=== PATIENT | male | born 1945 | race Caucasian/White ===

== ENCOUNTER → 2018-12-27 09:01 | Outpatient (CLI) | payer MEDICARE, SELFPAY ==
[2018-12-27 09:27] LABS: Add Manual Diff / Slide Review NO; Basophils Absolute Auto 0 /uL (0-100); Basophils Percent Auto 0.7 % (0-2); Eosinophils Absolute Auto 100 /uL (0-450); Eosinophils Percent Auto 1.6 % (2-4); Hematocrit 43.6 % (41-53); Hemoglobin 15.2 g/dL (13.5-17.5); Lymphocytes Absolute Auto 700 /uL (1100-4500); Lymphocytes Percent Auto 16.5 % (25-40); Mean Corpuscular HGB Conc 34.8 % (30-36); Mean Corpuscular Hemoglobin 33.8 PG (26-34); Monocytes Absolute Auto 400 /uL (0-900); Monocytes Percent Auto 8.3 % (3-14); Neutrophils Absolute Auto 3100 /uL (1500-7000); Neutrophils Percent Auto 72.9 % (50-75); Platelet Count 237 X10^3/uL (150-400); Red Blood Cell Count 4.49 X10^6/uL (4.5-5.9); Red Cell Distribution Width 13.1 % (11.6-14.8); White Blood Cell Count 4.3 X10^3/uL (4.5-11.0)
[2018-12-27 10:01] LABS: Alanine Aminotransferase 48 IU/L (21-72); Albumin Globulin Ratio 1.4 (1.0-2.8); Alkaline Phosphatase 60 U/L (38-126); Aspartate Aminotransferase 36 IU/L (17-59); BUN Creatinine Ratio 25.6 (6-22); Bilirubin Total 0.8 mg/dL (0.2-1.3); Blood Urea Nitrogen 23 mg/dL (9-20); Calcium 9.4 mg/dL (8.4-10.2); Carbon Dioxide 23 mmol/L (22-32); Chloride 104 mmol/L (98-107); Cholesterol 211 mg/dL (140-199); Estimated Glomerular Filt Rate > 60.0 mL/min (>60); Globulin 2.8 g/dL (1.7-4.1); Glucose 106 mg/dL (80-110); HDL Cholesterol 61 mg/dL (40-60); HEMOLYSIS < 15 (0-50); LDL Cholesterol Calculated 109 mg/dL (<100); Potassium 4.6 mmol/L (3.4-5.1); Sodium 137 mmol/L (137-145); Total Protein 6.8 g/dL (6.3-8.2); Triglycerides 204 mg/dL (35-150)
[2018-12-27 10:31] LABS: Prostate Specific Antigen 1.35 ng/mL (0.10-4.00)
== END ==
PROVIDERS: Family Provider Urology; Visit Provider Student in an Organized Health Care Education/Training Program
DX: E78.00 Pure hypercholesterolemia, unspecified (principal); N40.0 Benign prostatic hyperplasia without lower urinary tract symptoms; Z12.5 Encounter for screening for malignant neoplasm of prostate
CPT/HCPCS: 36415; 80053; 80061; 84153; 85025

== ENCOUNTER → 2019-01-28 09:03 | Outpatient (CLI) | payer MEDICARE, SELFPAY ==
[2019-01-28 10:44] LABS: Add Manual Diff / Slide Review NO; Basophils Absolute Auto 100 /uL (0-100); Basophils Percent Auto 1.7 % (0-2); Eosinophils Absolute Auto 100 /uL (0-450); Eosinophils Percent Auto 2.1 % (2-4); Hematocrit 42.1 % (41-53); Hemoglobin 14.3 g/dL (13.5-17.5); Lymphocytes Absolute Auto 900 /uL (1100-4500); Lymphocytes Percent Auto 20.1 % (25-40); Mean Corpuscular HGB Conc 33.9 % (30-36); Mean Corpuscular Hemoglobin 33.2 PG (26-34); Mean Corpuscular Volume 98.1 fL (80-100); Monocytes Absolute Auto 300 /uL (0-900); Monocytes Percent Auto 7.1 % (3-14); Neutrophils Absolute Auto 3000 /uL (1500-7000); Platelet Count 273 X10^3/uL (150-400); White Blood Cell Count 4.4 X10^3/uL (4.5-11.0)
== END ==
PROVIDERS: PCP Student in an Organized Health Care Education/Training Program; Visit Provider Student in an Organized Health Care Education/Training Program
DX: D72.819 Decreased white blood cell count, unspecified (principal)
CPT/HCPCS: 36415; 85025

== ENCOUNTER → 2019-11-07 12:22 | Outpatient (CLI) | payer MEDICARE, SELFPAY ==
[2019-11-07 14:47] LABS: Prostate Specific Antigen Scrn 0.599 ng/mL (0.1-4.0)
[2019-11-08 05:10] LABS: Immunoglobulin G, Quantitative 997 mg/dL (603-1613); Immunoglobulin M, Quantitative 198 mg/dL (15-143)
[2019-11-13 22:10] LABS: 18 kD IgG Band Present (.); 23 kD IgG Band Present (.); 28 kD IgG Band Absent (.); 30 kD IgG Band Absent (.); 39 kD IgG Band Absent (.); 41 kD IgG Bands Present (.); 45 kD IgG Band Absent (.); 58 kD IgG Band Absent (.); 66 kD IgG Band Absent (.); IgG P93 AB Present (.); IgM P23 AB Absent (.); IgM P39 AB Present (.); IgM P41 AB Absent (.); Lyme IgG Line Blot Interpretat Negative (.); Lyme IgM Line Blot Interpretat Negative (.)
== END ==
PROVIDERS: PCP Student in an Organized Health Care Education/Training Program; Referring Provider Student in an Organized Health Care Education/Training Program; Visit Provider Student in an Organized Health Care Education/Training Program
DX: N40.0 Benign prostatic hyperplasia without lower urinary tract symptoms (principal); W57.XXXA Bitten or stung by nonvenomous insect and other nonvenomous arthropods, initial encounter
CPT/HCPCS: 36415; 82784; 86617; 86618; G0103

== ENCOUNTER → 2021-02-14 09:28 | Outpatient (CLI) | payer OTHER, SELFPAY ==
[2021-02-14 14:48] LABS: COVID19 -Nasal RAPID Negative (Negative)
== END ==
PROVIDERS: PCP Student in an Organized Health Care Education/Training Program; Referring Provider Nurse Practitioner Family; Visit Provider Nurse Practitioner Family
DX: Z20.822 Contact with and (suspected) exposure to COVID-19 (principal); Z01.812 Encounter for preprocedural laboratory examination
CPT/HCPCS: 87635

== ENCOUNTER 2021-02-16 08:17 | Day surgery (SDC) | payer OTHER, SELFPAY ==
--- NOTE | 2021-02-16 07:26 | PM.PREOP ---
Pre-operative Note COVID-19 COVID-19 status: Negative Interval Note History & Physical reviewed/Exam performed by Physician: Yes Changes to H&P: No
--- NOTE | 2021-02-16 07:27 | PM.OP.1 ---
Operative Date/Time/Diagnoses Date of procedure: 02/09/21 Time of procedure: 09:45 Procedure & Clinicians Procedure: Preoperative diagnoses: 1. Right significant cortical and sclerotic cataract 2. Astigmatism and presbyopia which is to be corrected with a multifocal toric intraocular lens implant. 3. Glaucoma suspect Postoperative diagnoses: 1. Cataract removal with phacoemulsification with Panoptix toric posterior chamber intraocular lens implant placed. Procedure: Phacoemulsification with posterior chamber toric intraocular lens implant. Surgeon: Belkis Britton MD Complications: None Specimen: None Implant: [id number]+16.5 [place] 178 Blood loss: None Anesthesia: Retrobulbar with monitored standby Description of procedure: Patient presents with a complaint of decreased vision due to cataract which is affecting activities of daily living. He is having difficulty with driving middle and near vision and wishes surgery to improve these. He will likes a Panoptix toric intra-ocular The patient wants surgery to improve vision and astigmatism. He understands the extra risk of surgery during the COVID-19 epidemic and wishes to proceed. Is tested for negative iris within 72 hours of the procedure. The patient was taken to the operating room and proparacaine drops placed. Indelible ink contreras were placed at the 90 and 180 degree meridian. The patient was placed on the operating room table and given IV sedation. A retrobulbar block insert consisting of 6 cc of 2% xylocaine without epinephrine mixed half and half with 0.5% Marcaine with 1 cc of hyaluronidase added is placed between the medial and lateral 1/3 of the inferior orbital rim. The eye is manually massaged for 30 sec, prepped using Betadine solution, and draped in the usual sterile fashion. Temporal approach was made, a 1 mm side-port incision was made 90? from the proposed corneal wound. Phenylephrine 1.5% mixed with 1% xylocaine 0.2 cc was placed into the anterior chamber. Endocoat followed by Romulo was then placed. A 2.6 mm clear incision with a 2.6 mm blade was placed at the 170 degree meridian. To enhance visibility capsular dye was placed under an air bubble in the air bubble was removed. The eye was very deep set with poor central red reflex. 360 degree capsulorrhexis style capsulotomy was then performed with a cystitome needle on a Healon aided by the capsular dye Hydrodelineation and hydrodissection were performed. The phacoemulsification unit is introduced, and sculpting used to groove the central lens. It is then removed in chopping mode. Epi nucleus is removed with epinuclear mode and irrigation aspiration was used to remove the peripheral cortex. The posterior capsule is polished. The intraocular lens is selected, inspected, power confirmed, and placed in the posterior chamber at the desired meridian of 178 degrees and carefully centered. The pupil was not constricted. The wound was stromally hydrated and tested for leaks, there was none and it was left sutureless. Vigamox 0.1 cc was placed into the anterior chamber. Kenalog 0.2 cc was placed in the superior subconjunctival space. A drop of antibiotic and was placed and the eye was patched and shielded. The patient was stable and returned to the recovery room in excellent condition. Dictated by: Belkis Britton MD Copy to: [facility] Same procedure as scheduled: Yes
[2021-02-16] MEDS: PROPARACAINE 0.5% OPHTH SOL 2 DROPS EYE-OP ×2 (09:18→09:54)
[2021-02-16 09:21] VITALS: BP 111/69; PULSE 49; RESP 16; TEMP 36.7; O2SAT 98; BMI 24.0
[2021-02-16] MEDS: CATARACT EYE COMPOUND (10 DROPS/SYRINGE) 3 DROPS EYE-OP (09:39)
[2021-02-16] MEDS: LIDOCAINE 2% 4 ML, BUPIVACAINE 0.5% (PF) 4 ML, HYALURONIDASE 150 UNIT INJ (10:03)
--- NOTE | 2021-02-16 10:15 | SUR.OPER ---
Supine on eye stretcher, head on extension cradle and foam donut then secured with tape. Arms tucked at sides with blanket. Pillow under knees.
[2021-02-16] MEDS: HYALURONATE SODIUM 30 MG-10 MG/ML SYRINGES 1 BOX INTRAOCULA (10:18)
[2021-02-16] MEDS: ERYTHROMYCIN OPHTH 1 GM OINT 1 APPLIC EYE-RIGHT (10:18)
[2021-02-16] MEDS: MOXIFLOXACIN INJ 4 MG/0.8 ML VIAL 0.5 MG EYE-OP (10:18)
[2021-02-16] MEDS: TRYPAN BLUE 0.5 ML SYRINGE INJ (10:18)
[2021-02-16] MEDS: BALANCED SALT IRRIG SOLN NO.2 500 ML, EPINEPHrine 1 MG IRR (10:19)
[2021-02-16] MEDS: TRIAMCINOLONE 50 MG/5 ML VIAL INJ (10:19)
[2021-02-16] MEDS: PHENYLEPHRINE/LIDOCAINE VIAL (OR) 0.2 ML EYE-OP (10:19)
[2021-02-16 10:56] VITALS: BP 117/78; PULSE 47; RESP 14; TEMP 36.4; O2SAT 98
== END 2021-02-16 11:11 | disposition home or self-care (01) ==
LOC: OR 08:18
PROVIDERS: PCP Student in an Organized Health Care Education/Training Program; Referring Provider Ophthalmology; Visit Provider Ophthalmology
PROC: (CPT 66984; principal; 2021-02-16 09:45)
DX: H25.811 Combined forms of age-related cataract, right eye (principal); H52.201 Unspecified astigmatism, right eye; H52.4 Presbyopia; H40.009 Preglaucoma, unspecified, unspecified eye
CPT/HCPCS: 66984; J0171; J2704; J3301; J3470; V2788

== ENCOUNTER → 2021-02-28 09:27 | Outpatient (CLI) | payer OTHER, SELFPAY ==
[2021-02-28 14:12] LABS: COVID19 -Nasal RAPID Negative (Negative)
== END ==
PROVIDERS: PCP Student in an Organized Health Care Education/Training Program; Referring Provider Physician Assistant; Visit Provider Physician Assistant
DX: Z20.822 Contact with and (suspected) exposure to COVID-19 (principal); Z01.812 Encounter for preprocedural laboratory examination
CPT/HCPCS: 87635

== ENCOUNTER 2021-03-02 06:29 | Day surgery (SDC) | payer OTHER, SELFPAY ==
--- NOTE | 2021-03-01 17:21 | PM.PREOP ---
Pre-operative Note COVID-19 COVID-19 status: Negative Interval Note History & Physical reviewed/Exam performed by Physician: Yes Changes to H&P: No
--- NOTE | 2021-03-01 17:22 | PM.OP.1 ---
Operative Date/Time/Diagnoses Date of procedure: 03/02/21 Time of procedure: 07:45 Procedure & Clinicians Procedure: Preoperative diagnoses: 1. Left complex surgery with use of capsular dye. 2. Mature or advanced nuclear sclerotic and cortical cataract with poor visibility of the anterior capsule increasing surgical risks of complications. 3. Desire for a multifocal lens to correct distance middle and near vision. 4. Glaucoma suspect on [place]. Postoperative diagnoses: 1. Left Complex surgery with use of capsular dye, 2. Placement of a posterior chamber intraocular lens implant. Surgeon: Belkis Britton MD Complications: none Specimen: None Implant: TFATOO+17.0 Blood loss: None Anesthesia: Retrobulbar with monitored standby. Description of procedure: Dictated by: Belkis Britton MD Post operative diagnoses: 1. Left cataract removed with use of capsular dye . 2. Placement of a posterior chamber intraocular lens. Procedure: Phacoemulsification with posterior chamber intraocular lens implant Surgeon: Belkis Britton MD Blood loss: None Anesthesia: Retrobulbar with monitored standby Description of procedure: Patient has presented with decreased vision due to cataract which is affecting activities of daily living especially driving. The patient wants surgery to improve vision. They understand the extra risk of surgery during the COVID-19 epidemic and wished to proceed. The patient has tested negative for active COVID-19 virus within 72 hours of the procedure. He is a deep-set eye with poor red reflex and will require capsular dye. He also has a difficult to dilate. He is a retired distance education teacher. The patient was taken to the operating room and given IV sedation. A retrobulbar block consisting of 6 cc of 2% xylocaine without epinephrine mixed half and half with 0.5% Marcaine with 1 cc of hyaluronidase added is placed between the medial and lateral 1/3 of the inferior orbital rim. The eye is manually massaged for 30 sec, prepped using Betadine solution, and draped in the usual sterile fashion. Temporal approach was made, a 1 mm side-port incision was performed 90 degrees from the planned corneal wound. Phenylephrine 1.5% mixed with 1% xylocaine 0.2 cc was placed into the anterior chamber. [An air bubble was placed and capsular blue dye was placed to improve visibility of the anterior capsule. The dye was irrigated out to reduce bubbles. ]Endocoat followed by Healon was then placed. A 2.6 mm clear incision with a 2.6 mm blade was placed. A 360 degree capsulorrhexis style capsulotomy was then performed with a cystitome needle [facility] aided by the capsular dye. Hydrodelineation and hydrodissection were performed. The phacoemulsification unit is introduced, and sculpting used to groove the central lens. It is then removed in chopping mode. Epi nucleus is removed with epinuclear mode and irrigation aspiration was used to remove the peripheral cortex. The posterior capsule is polished. The intraocular lens is selected, inspected, power confirmed, folded into the master of ceremonies and placed in the posterior chamber. It is a Panoptix multifocal lens and it was carefully centered. wound was stromally hydrated and tested for leaks, there was none and was left sutureless. Intracameral moxifloxacin 0.1 cc was placed into the anterior chamber. Kenalog 0.2 cc was placed in the superior subconjunctival space. A drop of antibiotic and was placed and the eye was patched and shielded. The patient was stable and returned to the recovery room in excellent condition. He was noted to have restless leg syndrome during the procedure but there were no complications. Dictated by: Belkis Britton MD Copy to: [facility] Same procedure as scheduled: Yes
[2021-03-02] MEDS: PROPARACAINE 0.5% OPHTH SOL 2 DROPS EYE-OP (07:09)
[2021-03-02] MEDS: CATARACT EYE COMPOUND (10 DROPS/SYRINGE) 3 DROPS EYE-OP (07:13)
[2021-03-02 07:15] VITALS: BP 124/71; PULSE 50; RESP 16; TEMP 36.3; O2SAT 98; BMI 24.0
--- NOTE | 2021-03-02 07:46 | SUR.PREOP ---
0730-MD here..eye left not fully dilated -to continue drops. 0741-Eye Checked by MD. To give dose prior to transfer to OR-done. 0745-To OR after eye drops.
[2021-03-02] MEDS: HYALURONATE SODIUM 30 MG-10 MG/ML SYRINGES 1 BOX INTRAOCULA (08:09)
[2021-03-02] MEDS: ERYTHROMYCIN OPHTH 1 GM OINT 1 APPLIC EYE-LEFT (08:09)
[2021-03-02] MEDS: MOXIFLOXACIN INJ 4 MG/0.8 ML VIAL 0.5 MG EYE-OP (08:09)
[2021-03-02] MEDS: PHENYLEPHRINE/LIDOCAINE VIAL (OR) 0.2 ML EYE-OP (08:09)
[2021-03-02] MEDS: TRIAMCINOLONE 50 MG/5 ML VIAL INJ (08:09)
[2021-03-02] MEDS: BALANCED SALT IRRIG SOLN NO.2 500 ML, EPINEPHrine 1 MG IRR (08:10)
[2021-03-02] MEDS: TRYPAN BLUE 0.5 ML SYRINGE INJ (08:10)
[2021-03-02] MEDS: LIDOCAINE 2% 4 ML, BUPIVACAINE 0.5% (PF) 4 ML, HYALURONIDASE 150 UNIT INJ (08:10)
[2021-03-02 08:36] VITALS: BP 120/73; PULSE 46; RESP 16; TEMP 36.1; O2SAT 99
[2021-03-02 09:10] VITALS: BP 117/69; PULSE 45; RESP 16; TEMP 36.7; O2SAT 99
== END 2021-03-02 09:10 | disposition home or self-care (01) ==
PROVIDERS: PCP Student in an Organized Health Care Education/Training Program; Referring Provider Ophthalmology; Visit Provider Ophthalmology
PROC: (CPT 66984; principal; 2021-03-02 07:45)
DX: H25.812 Combined forms of age-related cataract, left eye (principal); H40.009 Preglaucoma, unspecified, unspecified eye
CPT/HCPCS: 66984; J0171; J2704; J3301; J3470; V2788

== ENCOUNTER → 2023-01-22 11:29 | Outpatient (CLI) | payer OTHER, SELFPAY ==
--- NOTE | 2023-01-22 11:30 | DI.RAD.S_ITS ---
PROCEDURE: XR HAND RT MIN 3V INDICATIONS: Anterior medial pain over medial carpal bones TECHNIQUE: 3 views of the hand(s) acquired. COMPARISON: None. FINDINGS: Bones: No fractures or dislocations. Mild degenerative changes of the interphalangeal joints. Moderate degenerative changes of the 1st carpometacarpal joint. Juxtacortical lucencies are noted. Carpal bones are normally aligned. No suspicious bony lesions. Soft tissues: No suspicious soft tissue calcifications. IMPRESSION: 1. No acute osseous abnormalities. 2. Interphalangeal and 1st carpometacarpal joint degenerative changes with juxtacortical lucencies which may represent subchondral cystic changes versus erosions. Dictated by: Bala Smith M.D. on 01/22/2023 at 12:55 Approved by: Bala Smith M.D. on 01/22/2023 at 12:57
== END ==
PROVIDERS: PCP Student in an Organized Health Care Education/Training Program; Referring Provider Physician Assistant; Visit Provider Physician Assistant
DX: M79.641 Pain in right hand (principal)
CPT/HCPCS: 73130

== ENCOUNTER → 2025-04-17 10:33 | Outpatient (CLI) | payer MEDICARE, SELFPAY ==
--- NOTE | 2025-04-17 10:37 | DI.RAD.S_ITS ---
PROCEDURE: XR KNEE LT 4V INDICATIONS: left knee pain - paper orders TECHNIQUE: 4 views of the knee were acquired. COMPARISON: None. FINDINGS: Bones: No fractures or dislocations. No suspicious bony lesions. Tricompartmental joint space narrowing with associated osteophytosis. Soft tissues: No joint effusion. No suspicious soft tissue calcifications. IMPRESSION: [id number] tricompartmental osteoarthritis. Kellgren-Leandro Grade 2. Dictated by: Richard Jorge M.D. on 04/18/2025 at 14:49 Approved by: Richard Jorge M.D. on 04/18/2025 at 14:49
== END ==
PROVIDERS: PCP Family Medicine; Referring Provider Internal Medicine; Visit Provider Internal Medicine
DX: M17.12 Unilateral primary osteoarthritis, left knee (principal); M25.562 Pain in left knee
CPT/HCPCS: 73564